=== PATIENT | female | born 1965 | race Native Hawaiian/Other Pacific Islander ===

== ENCOUNTER 2017-11-15 10:16 | Outpatient (CLI) | payer BC | END 2017-11-15 20:05 | disposition home or self-care (01) | LOC: RAD 10:16 | DX: M25.521 Pain in right elbow (principal) ==

== ENCOUNTER 2018-01-04 12:14 | Emergency (ER) | payer BC ==
[~2018-01-04] VITALS: Ht 160 cm; Wt 114.8 kg
[2018-01-04 12:34] VITALS: TEMP 97.5
[2018-01-04 13:05] LABS: PLATELET COUNT 204 K/uL (152-353)
[2018-01-04 14:28] VITALS: BP 132/64
== END 2018-01-04 14:29 | disposition home or self-care (01) ==
LOC: ED 12:14
PROVIDERS: Emergency Medicine
DX: N61.0 Mastitis without abscess (principal); T21.01XA Burn of unspecified degree of chest wall, initial encounter; T65.891A Toxic effect of other specified substances, accidental (unintentional), initial encounter; F41.9 Anxiety disorder, unspecified
CPT/HCPCS: 36415; 80048; 81000; 85027; 93005; 96360; 96372; 96374; 96375; 99284; J0696; J2001; J2060; J2930